=== PATIENT | female | born 1950 | race Caucasian/White ===

== ENCOUNTER → 2018-12-04 | Outpatient (CLI) | payer BC, MEDICARE ==
[~2018-12-04] MED LIST: ACEBUTCAFT PO; ALBU90OI61 INH; ANAS1 PO; Dazidox10 MG; Dulcolax5 MG PO; ERGO50000; FENT25TP TOP; Miralax17 GM PO; OXYACE5T PO; OXYC40ER PO; PRED10 PO; PRODEXEL PO; PSYL5.85P PO; Percocet 10-321 EACH PO; Valium5 MG PO; WATER PILL; ZOLP10 PO
== END ==
LOC: LAB 16:55 → LAB SHORT 16:55
DX: N39.0 Urinary tract infection, site not specified (principal)
CPT/HCPCS: 87086

== ENCOUNTER 2021-04-12 19:24 | Observation (INO) | payer MEDICARE, OTHER ==
[~2021-04-12] VITALS: Ht 152.4 cm; Wt 80.0 kg
[~2021-04-12 19:24] MED LIST changes: -ASCO500 PO; -Acetaminophen650 M1 PO; -Biotin800 MCG PO; -GINKGO60 MG PO; -META800 PO; -NAPR220 PO; -PRED20 PO; -TOCO1000 PO; -VITAMIN D5000 UNIT PO
[2021-04-12 20:21] LABS: BASOPHILS ABSOLUTE AUTO 0.08 K/mm3 (0.00-0.23); BASOPHILS PERCENT AUTO 1 % (0-2); EOSINOPHILS ABSOLUTE AUTO 0.16 K/mm3 (0.00-0.68); EOSINOPHILS PERCENT AUTO 1 % (0-6); Hematocrit 40.1 % (33.0-51.0); Hemoglobin 13.3 g/dL (11.5-16.0); IMMATURE GRAN PERCENT AUTO 1 % (0-1); LYMPHOCYTES ABSOLUTE AUTO 1.93 K/mm3 (0.84-5.20); LYMPHOCYTES PERCENT AUTO 16 % (21-46); MONOCYTES ABSOLUTE AUTO 1.01 K/mm3 (0.16-1.47); MONOCYTES PERCENT AUTO 9 % (4-13); Mean Corpuscular HGB 28.4 pg (26.0-34.0); Mean Corpuscular HGB Conc 33.2 g/dL (31.5-36.5); Mean Corpuscular Volume 86 fL (80-100); Mean Platelet Volume 9.6 fL (9.1-12.4); NEUTROPHILS ABSOLUTE AUTO 8.66 K/mm3 (1.96-9.15); NEUTROPHILS PERCENT AUTO 73 % (41-73); Platelet Count 365 K/mm3 (150-400); RDW Coefficient Variation 13.4 % (11.7-14.2); RDW Standard Deviation 41.5 fL (35.1-46.3); Red Blood Cell Count 4.69 M/mm3 (3.80-5.20); White Blood Cell Count 11.94 K/mm3 (4.00-11.30)
[2021-04-12 20:46] LABS: Alanine Aminotransfer (ALT/SGP 22 U/L (12-78); Albumin, Blood 3.1 g/dL (3.4-5.0); Albumin/Globulin Ratio 0.6 (0.8-1.8); Alk Phos 109 U/L (50-136); Anion Gap 5 mmol/L (6-16); Aspartate Aminotrans (AST/SGOT 16 U/L (12-37); Bilirubin, Total 0.4 mg/dL (0.1-1.0); Blood Urea Nitrogen 9 mg/dL (8-24); Bun/Creatinine Ratio 13.8 (12.0-20.0); CO2, Blood 27 mmol/L (21-32); Chloride, Blood 104 mmol/L (98-108); Creatinine, Blood 0.65 mg/dL (0.40-1.00); Globulin, Blood 4.8 g/dL (2.2-4.0); Glomerular Filtration Rate >60 (60-); Glucose, Blood 140 mg/dL (70-99); Potassium, Blood 3.5 mmol/L (3.5-5.5); Sodium, Blood 136 mmol/L (136-145); Total Protein, Blood 7.9 g/dL (6.4-8.2); Troponin I <0.015 ng/mL (0.000-0.040)
[2021-04-13] MEDS ORDERED: VITAMIN D5000 UNIT PO (01:10)
[2021-04-13] MEDS ORDERED: ASCO500 PO (02:42)
[2021-04-13] MEDS ORDERED: Biotin800 MCG PO (02:43)
[2021-04-13] MEDS ORDERED: TOCO1000 PO (02:44)
[2021-04-13] MEDS ORDERED: GINKGO60 MG PO (02:44)
[2021-04-13] MEDS ORDERED: META800 PO (02:46)
[2021-04-13] MEDS ORDERED: NAPR220 PO (02:47)
--- NOTE | 2021-04-13 05:49 | NUR ---
SHIFT SUMMARY- PT. NEW ADMISSION FROM ED. A&OX4, ORIENTED TO NURSING STAFF AND ROOM. PAINFUL LAST NIGHT. HX OF FIBROMYALGIA. MEDICATED PER EMAR. PT. RESTED QUIETLY T/O THE NIGHT, NO APPARENT DISTRESS NOTED. AMBULATES IN ROOM W/SBA, NOTED WEAKNESS WHEN UP, VSS. CALL LIGHT WITHIN REACH AND SIDE RAILS UPX2. WILL CONT TO MONITOR.
[2021-04-13] MEDS ORDERED: PRED20 PO (10:29)
--- NOTE | 2021-04-13 12:32 | NUR ---
DISCHARGE SUMMARY PT A/O X4; PLEASANT AND COOPERATIVE WITH CARE. NO C/O PAIN THIS AM. REPORTS FEELING MUCH BETTER. WENT OVER DISCHARGE AND MEDICATION INSTRUCTIONS WITH PATIENT. PATIENT VERBALIZED UNDERSTANDING. IV DC'D WNL. DISCHARGED HOME WITH .
[2021-04-14 18:10] LABS: ANA DIRECT Negative (Negative); ANTI-DNA (DS) AB QN <1 IU/mL (0-9); RNP ANTIBODIES <0.2 AI (0.0-0.9); SJOGREN'S ANTI-SS-A <0.2 AI (0.0-0.9); SJOGREN'S ANTI-SS-B <0.2 AI (0.0-0.9); SMITH ANTIBODIES <0.2 AI (0.0-0.9)
== END 2021-04-13 11:45 | disposition home or self-care (01) ==
LOC: ER 19:24 → MEDS 19:25
PROVIDERS: Physician Assistant; ADMIT Internal Medicine
DX: M35.3 Polymyalgia rheumatica (principal); R06.00 Dyspnea, unspecified; J44.9 Chronic obstructive pulmonary disease, unspecified; E78.5 Hyperlipidemia, unspecified; Z85.3 Personal history of malignant neoplasm of breast; Z87.891 Personal history of nicotine dependence; Z88.5 Allergy status to narcotic agent; Z79.899 Other long term (current) drug therapy; R53.83 Other fatigue; E11.9 Type 2 diabetes mellitus without complications; R35.0 Frequency of micturition
CPT/HCPCS: 36415; 71045; 71260; 80053; 83036; 83690; 83735; 84484; 85025; 85379; 85651; 86140; 86225; 86235; 87086; 93005; 93010; 96374; 96375; 99285-25; A9270; G0378; J1200; J1885; J7512; Q9967

== ENCOUNTER → 2021-04-12 | Outpatient (CLI) | payer MEDICARE ==
[~2021-04-12] MED LIST changes: +ASCO500 PO; +Acetaminophen650 M1 PO; +Biotin800 MCG PO; +GINKGO60 MG PO; +META800 PO; +NAPR220 PO; +PRED20 PO; +TOCO1000 PO; +VITAMIN D5000 UNIT PO
[2021-04-13 07:36] LABS: Anion Gap 10 mmol/L (6-16); CO2, Blood 27 mmol/L (21-32); Chloride, Blood 101 mmol/L (98-108); Glucose, Blood 174 mg/dL (70-99); Potassium, Blood 3.6 mmol/L (3.5-5.5); Sodium, Blood 138 mmol/L (136-145)
[2021-04-13 07:37] LABS: Alanine Aminotransfer (ALT/SGP 26 U/L (12-78); Albumin, Blood 3.1 g/dL (3.4-5.0); Albumin/Globulin Ratio 0.7 (0.8-1.8); Alk Phos 109 U/L (40-126); Aspartate Aminotrans (AST/SGOT 17 U/L (12-37); Bilirubin, Total 0.4 mg/dL (0.1-1.0); Blood Urea Nitrogen 8 mg/dL (8-24); Bun/Creatinine Ratio 10.4 (12.0-20.0); Creatinine, Blood 0.77 mg/dL (0.40-1.00); Globulin, Blood 4.6 g/dL (2.2-4.0); Glomerular Filtration Rate >60 (60-); Magnesium, Blood 1.9 mg/dL (1.6-2.4); Total Protein, Blood 7.7 g/dL (6.4-8.2)
[2021-04-13 07:41] LABS: BASOPHILS ABSOLUTE AUTO 0.08 K/mm3 (0.00-0.23); BASOPHILS PERCENT AUTO 1 % (0-2); EOSINOPHILS ABSOLUTE AUTO 0.16 K/mm3 (0.00-0.68); EOSINOPHILS PERCENT AUTO 1 % (0-6); Hematocrit 39.9 % (33.0-51.0); Hemoglobin 13.3 g/dL (11.5-16.0); IMMATURE GRAN PERCENT AUTO 1 % (0-1); LYMPHOCYTES ABSOLUTE AUTO 1.54 K/mm3 (0.84-5.20); LYMPHOCYTES PERCENT AUTO 13 % (21-46); MONOCYTES ABSOLUTE AUTO 0.93 K/mm3 (0.16-1.47); MONOCYTES PERCENT AUTO 8 % (4-13); Mean Corpuscular HGB 28.3 pg (26.0-34.0); Mean Corpuscular HGB Conc 33.3 g/dL (31.5-36.5); Mean Corpuscular Volume 85 fL (80-100); Mean Platelet Volume 9.5 fL (9.1-12.4); NEUTROPHILS PERCENT AUTO 77 % (41-73); Platelet Count 378 K/mm3 (150-400); RDW Coefficient Variation 13.3 % (11.7-14.2); RDW Standard Deviation 41.2 fL (35.1-46.3); White Blood Cell Count 12.21 K/mm3 (4.00-11.30)
== END | disposition home or self-care (01) ==
LOC: LAB 18:24 → LAB SHORT 18:24
PROVIDERS: Physician Assistant
DX: R06.00 Dyspnea, unspecified (principal); E11.9 Type 2 diabetes mellitus without complications; R53.83 Other fatigue; R35.0 Frequency of micturition
CPT/HCPCS: 80053; 83036; 83735; 85025; 85379; 87086

== ENCOUNTER 2021-04-29 06:18 | Day surgery (SDC) | payer MEDICARE ==
[~2021-04-29] VITALS: Ht 152.4 cm; Wt 77.0 kg
[~2021-04-29 06:18] MED LIST changes: +ASCO500 PO; +Biotin800 MCG PO; +GINKGO60 MG PO; +META800 PO; +NAPR220 PO; +PRED20 PO; +TOCO1000 PO; +VITAMIN D5000 UNIT PO
[2021-04-29] MEDS ORDERED: Acetaminophen650 M1 PO (07:23)
== END 2021-04-29 08:37 | disposition home or self-care (01) ==
LOC: ORSCSDS 06:18
PROVIDERS: Otolaryngology
PROC: 03BT0ZX Excision of Left Temporal Artery, Open Approach, Diagnostic (ICD-10-PCS; principal; 2021-04-29 07:30)
DX: M31.6 Other giant cell arteritis (principal); E66.9 Obesity, unspecified; K21.9 Gastro-esophageal reflux disease without esophagitis; Z68.33 Body mass index [BMI] 33.0-33.9, adult; Z79.899 Other long term (current) drug therapy
CPT/HCPCS: 88305; 88313; J2250; J3010

== ENCOUNTER → 2022-05-29 | Outpatient (CLI) | payer OTHER ==
[~2022-05-29] MED LIST changes: +Acetaminophen650 M1 PO
== END ==
LOC: LAB SHORT 14:45 → LAB 14:45 → LAB SHORT 05-30 14:45
DX: R35.0 Frequency of micturition (principal)
CPT/HCPCS: 87086

== ENCOUNTER → 2023-10-05 | Outpatient (CLI) | payer OTHER ==
[2023-10-05 20:41] LABS: Microalb/Creat Ratio UR, Rand 7.762 mg/g (0.000-30.000); Microalbumin, Random Urine 16.3 mg/L (0.000-20.000)
== END ==
LOC: LAB SHORT 13:52 → LAB 13:52
PROVIDERS: Family Medicine
DX: E11.69 Type 2 diabetes mellitus with other specified complication (principal)
CPT/HCPCS: 82043; 82570

== ENCOUNTER → 2025-05-16 | Outpatient (CLI) | payer OTHER ==
[2025-05-18 05:29] LABS: ANTI-NUCLEAR AB ANA,IGG ELISA None Detected (None Detected)
[2025-05-18 06:01] LABS: CYCLIC CITRULLINATED PEP,IGG/A 201 Units (0-19)
[2025-05-19 14:32] LABS: RA, SEMIQUANTITATIVE 64 IU/ml (<8)
== END ==
LOC: LAB SHORT 12:22 → LAB 12:22
PROVIDERS: Family Medicine
DX: M25.50 Pain in unspecified joint (principal)
CPT/HCPCS: 85651; 86038; 86140; 86200; 86430; 86431